=== PATIENT | female | born 1965 | race Caucasian/White ===

== ENCOUNTER 2018-04-09 11:19 | Day surgery (SDC) | payer OTHER ==
[2018-04-09 12:59] VITALS: TEMP 97.8
[2018-04-09 13:39] VITALS: BP 150/78; PULSE 56
--- NOTE | 2018-04-10 18:22 | PATH ---
Surgical Pathology Report Patient Name: JANETH PLASENCIA [facility]. Rec. #: [id number] /Age/Gender: 1965 (Age: 52) / F Account: [id number] Location: U-ENDOSCOPY Taken: 04/09/2018 Received: 04/09/2018 Reported: 04/10/2018 Physicians: Odell Bowers D.O. Specimen(s) Received A: BX DUODENUM B: BX ANTRUM C: BX BODY Clinical History Abdominal bloating, gallstones Postoperative diagnosis: Gastritis, duodenitis, small sliding hiatal hernia Final Diagnosis A. DUODENUM, BIOPSY: DUODENAL MUCOSA WITHOUT SIGNIFICANT PATHOLOGIC FINDINGS. B. STOMACH, ANTRUM, BIOPSY: GASTRIC ANTRAL MUCOSA WITH MILD CHRONIC GASTRITIS. IMMUNOHISTOCHEMICAL STAIN FOR H. PYLORI IS NEGATIVE. C. STOMACH, BODY, BIOPSY: GASTRIC BODY MUCOSA WITHOUT SIGNIFICANT PATHOLOGIC FINDINGS. IMMUNOHISTOCHEMICAL STAIN FOR H. PYLORI IS NEGATIVE. Electronically Signed Eliza Pham M.D. Gross Description A. Received in formalin, labeled "biopsy duodenum" are 3 marrufo, irregular portions of soft tissue ranging from 0.3-0.4 cm. in greatest dimension. The specimens are submitted in toto in one cassette. B. Received in formalin, labeled "biopsy antrum" are 3 marrufo, irregular portions of soft tissue ranging from 0.2-0.4 cm. in greatest dimension. The specimens are submitted in toto in one cassette. C. Received in formalin, labeled "biopsy body of stomach" is a marrufo, irregular portion of soft tissue measuring 0.4 cm. in greatest dimension. The specimen is submitted in toto in one cassette. /04/09/2018 saudi04/09/2018
== END 2018-04-09 13:39 | disposition home or self-care (01) ==
LOC: JASU-ENDO 11:19
PROVIDERS: ATTEND Internal Medicine Gastroenterology
PROC: 0DB68ZX Excision of Stomach, Via Natural or Artificial Opening Endoscopic, Diagnostic (ICD-10-PCS; 2018-04-09)
PROC: 0DB98ZX Excision of Duodenum, Via Natural or Artificial Opening Endoscopic, Diagnostic (ICD-10-PCS; principal; 2018-04-09 12:00)
DX: K29.60 Other gastritis without bleeding (principal); K44.9 Diaphragmatic hernia without obstruction or gangrene; K29.80 Duodenitis without bleeding
CPT/HCPCS: 88305-TC; 88342-TC

== ENCOUNTER 2019-04-07 00:02 | Inpatient (IN) | payer OTHER ==
[2019-04-07] MEDS ORDERED: morphine CARPU-JECT 2 MG/1 ML DISP.SYRIN IVPUSH ONE ×2 (00:19→03:26)
[2019-04-07] MEDS ORDERED: SODIUM CHLORIDE 1,000 ML IV ONE (00:19)
[2019-04-07] MEDS ORDERED: KETOROLAC TROMETHAMINE 30 MG/1 ML VIAL IVPUSH ONE (00:19)
--- NOTE | 2019-04-07 00:21 | PDOC ---
History of Present Illness - General Chief Complaint: Pain, Acute Stated Complaint: CHILLS,ACHING, PAIN TO MID ABDOMEN Time Seen by Provider: 04/07/19 00:10 History Source: Patient Exam Limitations: No Limitations - History of Present Illness Initial Comments: 04/07/19 00:22 This is a 53-year-old female who comes in complaining of epigastric and right upper quadrant abdominal pain. Patient has a history of gallstones. Patient is a pain began post eating buckner today. Patient also had been having some flulike symptoms prior to the onset of her pain today. Patient denies any nausea vomiting or diarrhea. Patient is complaining some chills but is afebrile here in the emergency department. Patient says she also had an episode of dizziness with some slurred speech and confusion 2 days ago that has since resolved. Patient does have a history also of pancreatitis and small bowel obstruction in the past many years ago and said that she has not had any problems with either over the last several decades. Allergies: as per nursing notes Past Medical History: As per HPI Social history: Lives with family. + smoking. No alcohol. No illicit drugs. Surgical history: None General: No fevers or chills, no weakness, no weight loss HEENT: No change in vision. No sore throat,. No ear pain CardioVascular: no chest discomfort. No shortness of breath Respiratory:No cough, or wheezing. Gastrointestinal: no nausea, vomiting, diarrhea or constipation, No rectal bleeding.+ Abdominal pain Genitourinary: No dysuria, hematuria, or frequency Musculoskeletal: No joint or muscle pain or swelling Neurologic: No headache, vertigo, dizziness or loss of consciousness Psychiatric: nor depression Skin: No rashes or easy bruising Endocrine: no increased thirst or abnormal weight change Allergic: no skin or latex allergy All other systems reviewed and normal Exam: General: Well-nourished well-developed individual, no acute distress HEENT: Throat: Normal, tonsils normal, no erythema or exudate Neck: Supple, no meningeal signs, no lymphadenopathy Eyes::Pupils equal reactive and round, extraocular motion intact Chest: Nontender to palpation Cardiac: S1-S2 normal, regular rate and rhythm, no murmurs rubs or gallops Respiratory: Lungs clear to auscultation bilateral Abdomen: Soft, nondistended, normal bowel sounds, there is tenderness on palpation in the right upper quadrant and epigastric area, there is no guarding or rebound. Extremities: Warm, dry, no cyanosis, clubbing, or edema Skin: No rashes Neuro: Alert and oriented x3, CN II - XII intact, nonfocal exam with normal strength, normal sensation, normal reflexes, normal gait, Psych: Normal mood and affect Assessment and plan: This is a 53-year-old female who comes in complaining of chills and abdominal pain. Patient has a history of gallstones in the past. Patient's pain began post eating buckner. Patient was tender in her right upper quadrant and work-up was initiated including CBC, comp, lipase, CAT scan abdomen and ultrasound of gallbladder. 04/07/19 03:27 Ultrasound is moderately suspicious for acute cholecystitis with thickening of the wall at 4 mm but no dilation of the common bile duct Patient also has a urinary tract infection Patient given ceftriaxone and Flagyl IV Patient will be admitted to an inpatient bed for removal of her gallstones Past History - Past Medical History Allergies/Adverse Reactions: Allergies Allergy/AdvReac Type Severity Reaction Status Date / Time Penicillins Allergy Verified 04/07/19 00:04 Home Medications: Ambulatory Orders Lorazepam [Ativan] 2 mg PO TID 05/02/14 Sertraline HCl 50 mg PO BID 04/08/18 Anemia: No Asthma: No Cancer: No Cardiac Disorders: No CVA: No COPD: No CHF: No Dementia: No Diabetes: No GI Disorders: Yes (IBS, GALLSTONES, ILEUS VS BOWEL OBSTRUCTION W/ PANCREATITIS) Disorders: No HTN: No Hypercholesterolemia: No Liver Disease: No Psychiatric Problems: Yes (ANXIETY) Seizures: No Thyroid Disease: No - Surgical History Abdominal Surgery: No Appendectomy: No Cardiac Surgery: No Cholecystectomy: No Lung Surgery: No Neurologic Surgery: No Orthopedic Surgery: Yes (RIGHT ELBOW SURGERY-40 YEARS AGO) - Psycho Social/Smoking Cessation Hx Smoking History: Current every day smoker Have you smoked in the past 12 months: Yes Number of Cigarettes Smoked Daily: 10 Information on smoking cessation initiated: Yes 'Breaking Loose' booklet given: 04/09/18 Hx Alcohol Use: No Drug/Substance Use Hx: No Substance Use Type: None Hx Substance Use Treatment: No *Physical Exam - Vital Signs Last Vital Signs Temp Pulse Resp BP Pulse Ox 97.9 F 52 L 20 122/75 98 04/07/19 00:06 04/07/19 00:06 04/07/19 00:06 04/07/19 00:06 04/07/19 00:06 ED Treatment Course - LABORATORY CBC & Chemistry Diagram: 04/07/19 00:30 04/07/19 00:30 Discharge - Discharge Information Problems reviewed: Yes Clinical Impression/Diagnosis: Acute cholecystitis Condition: Stable - Admission Yes - Follow up/Referral - Patient Discharge Instructions - Post Discharge Activity
[2019-04-07] MEDS ORDERED: morphine SULFATE 4 MG/ML VIAL ONE ×2 (00:44→03:27)
[2019-04-07] MEDS ORDERED: KETOROLAC TROMETHAMINE 30 MG/1 ML VIAL ONE (00:44)
[2019-04-07 01:16] LABS: BASO % 0.8 % (0-2.0); EOS % 2.6 % (0-4.5); HEMATOCRIT 40.9 % (32.4-45.2); HEMOGLOBIN 13.6 GM/dL (10.7-15.3); LYMPH % 37.9 % (8-40); MCH 31.3 pg (25.7-33.7); MCHC 33.4 g/dl (32.0-36.0); MEAN CELL VOLUME 93.8 fl (80-96); MEAN PLT VOLUME 9.5 fl (7.5-11.1); MONO % 8.5 % (3.8-10.2); NEUT % 50.2 % (42.8-82.8); PLATELET COUNT 196 K/MM3 (134-434); RBC 4.36 M/mm3 (3.60-5.2); RDW 13.6 % (11.6-15.6); WHITE BLOOD COUNT 6.6 K/mm3 (4.0-10.0)
[2019-04-07 01:20] LABS: EPI CELLS 0.8 /HPF (0-5/HPF); HYALINE CASTS 12 /lpf (0-8); PH,URINE 5.5 (5.0-8.0); URINE APPEARANCE CLEAR; URINE BILIRUBIN NEGATIVE (NEGATIVE); URINE COLOR YELLOW; URINE GLUCOSE (UA) NEGATIVE (NEGATIVE); URINE KETONE TRACE (NEGATIVE); URINE LEUK ESTERASE 2+ (NEGATIVE); URINE NITRITE NEGATIVE (NEGATIVE); URINE PROTEIN NEGATIVE (NEGATIVE); URINE RBC 1 /hpf (0-4); URINE UROBILINOGEN 0.2 mg/dL (0.2-1.0); URINE WBC 29 /hpf (0-5)
[2019-04-07 01:38] LABS: ALBUMIN 4.1 g/dl (3.4-5.0); ALK PHOS 91 U/L (45-117); ANION GAP 7 MMOL/L (8-16); BILIRUBIN,TOTAL 0.2 mg/dL (0.2-1); BLOOD UREA NITROGEN 21.1 mg/dL (7-18); CALCIUM 9.4 mg/dL (8.5-10.1); CHLORIDE 106 mmol/L (98-107); CO2 29 mmol/L (21-32); CREATININE 1.1 mg/dL (0.55-1.3); GLUCOSE,RANDOM 106 mg/dL (74-106); POTASSIUM 3.7 mmol/L (3.5-5.1); SGOT/AST 19 U/L (15-37); SGPT/ALT 25 U/L (13-61); SODIUM 142 mmol/L (136-145); TOT PROT 7.4 g/dl (6.4-8.2)
[2019-04-07] MEDS ORDERED: CEFTRIAXONE 2,000 MG in DEXTROSE 5%-WATER - 50 ML IVPB ONE (03:24)
[2019-04-07] MEDS ORDERED: morphine CARPU-JECT 2 MG/1 ML DISP.SYRIN IVPUSH PRN (05:24)
[2019-04-07] MEDS ORDERED: LORazepam 2 MG/ML SDV VIAL IM PRN ×2 (05:30→09:36)
[2019-04-07] MEDS ORDERED: SODIUM CHLORIDE 1,000 ML IV SCH (05:30)
[2019-04-07] MEDS ORDERED: HEPARIN NA (PORCINE) 5,000 UNITS/ML 1ML VIAL SQ SCH (06:00)
[2019-04-07 07:05] LABS: HEMATOCRIT 36.5 % (32.4-45.2); MCH 31.1 pg (25.7-33.7); MCHC 32.8 g/dl (32.0-36.0); MEAN CELL VOLUME 94.9 fl (80-96); MEAN PLT VOLUME 8.8 fl (7.5-11.1); PLATELET COUNT 171 K/MM3 (134-434); RBC 3.84 M/mm3 (3.60-5.2); RDW 13.1 % (11.6-15.6); WHITE BLOOD COUNT 5.1 K/mm3 (4.0-10.8)
[2019-04-07 07:19] LABS: CALCIUM 8.6 mg/dl (8.5-10); CREATININE 0.7 mg/dl (0.55-1.3); POTASSIUM 3.8 mmol/L (3.5-5.1)
--- NOTE | 2019-04-07 09:18 | HP ---
"CHIEF COMPLAINT: Abdominal pain PCP: Dr. Henley HISTORY OF PRESENT ILLNESS: 53 year-old female with a PMH significant for arthritis, panic/anxiety disorder , IBS, pancreatitis in setting of heroin withdrawal, possible chronic cholecystitis, and polysubstance abuse. Presented to the ED for evaluation of epigastric and right upper quadrant abdominal pain. Patient reports intermittent abdominal pain for 1/2 years, had a workup in 2018 and was told she had gallstones. Yesterday patient developed severe abdominal pain and nausea after eating buckner. She has been having some malaise and flulike symptoms for the past week. ER course was notable for: (1) Lipase 415 Recent Travel: No PAST MEDICAL HISTORY: Arthritis Panic/Anxiety disorder IBS Former heroin abuse Pancreatitis PAST SURGICAL HISTORY: Right elbow surgery Social History: single, works as [employer] worker Smoking: current every day smoker Alcohol: no Drugs: former intransasal heroin abuse, cocaine abuse Family history: father 48 [place]; mother with depression Allergies Penicillins Allergy (Verified 04/07/19 00:04) HOME MEDICATIONS: Home Medications Medication Instructions Recorded Lorazepam [Ativan] 2 mg PO TID 05/02/14 Sertraline HCl 50 mg PO BID 04/08/18 REVIEW OF SYSTEMS CONSTITUTIONAL: Absent: fever, chills, diaphoresis, generalized weakness, malaise, loss of appetite, weight change HEENT: Absent: rhinorrhea, nasal congestion, throat pain, throat swelling, difficulty swallowing, mouth swelling, ear pain, eye pain, visual changes CARDIOVASCULAR: Absent: chest pain, syncope, palpitations, irregular heart rate, lightheadedness , peripheral edema RESPIRATORY: Absent: cough, shortness of breath, dyspnea with exertion, orthopnea, wheezing, stridor, hemoptysis GASTROINTESTINAL: +abdominal pain, nausea Absent: vomiting, diarrhea, constipation, melena, hematochezia GENITOURINARY: Absent: dysuria, frequency, urgency, hesitancy, hematuria, flank pain, genital pain MUSCULOSKELETAL: Absent: myalgia, arthralgia, joint swelling, back pain, neck pain SKIN: Absent: rash, itching, pallor HEMATOLOGIC/IMMUNOLOGIC: Absent: easy bleeding, easy bruising, lymphadenopathy, frequent infections ENDOCRINE: Absent: unexplained weight gain, unexplained weight loss, heat intolerance, cold intolerance NEUROLOGIC: Absent: headache, focal weakness or paresthesias, dizziness, unsteady gait, seizure, mental status changes, bladder or bowel incontinence PSYCHIATRIC: Absent: anxiety, depression, suicidal or homicidal ideation, hallucinations. PHYSICAL EXAMINATION Vital Signs - 24 hr 04/07/19 04/07/19 04/07/19 00:06 03:51 03:58 Temperature 97.9 F 97.7 F 97.8 F Pulse Rate 52 L 46 L Pulse Rate [ 51 L Left] Respiratory 20 18 18 Rate Blood Pressure 122/75 129/68 Blood Pressure 131/77 [Left] O2 Sat by Pulse 98 99 99 Oximetry (%) 04/07/19 04/07/19 04/07/19 04:16 05:24 06:00 Temperature 97.8 F 97.7 F Pulse Rate 46 L 51 L Pulse Rate [ Left] Respiratory 18 18 Rate Blood Pressure 129/68 100/57 L Blood Pressure [Left] O2 Sat by Pulse 95 Oximetry (%) 04/07/19 04/07/19 06:57 08:32 Temperature Pulse Rate 53 L Pulse Rate [ Left] Respiratory 18 Rate Blood Pressure 110/63 Blood Pressure [Left] O2 Sat by Pulse 95 Oximetry (%) GENERAL: Awake, alert, and fully oriented, in no acute distress. HEAD: Normal with no signs of trauma. EYES: Pupils equal, round and reactive to light, extraocular movements intact, sclera anicteric, conjunctiva clear. No lid lag. EARS, NOSE, THROAT: Ears normal, nares patent, oropharynx clear without exudates. Moist mucous membranes. NECK: Normal range of motion, supple without lymphadenopathy, JVD, or masses. LUNGS: Breath sounds equal, clear to auscultation bilaterally. No wheezes, and no crackles. No accessory muscle use. HEART: Regular rate and rhythm, normal S1 and S2 without murmur, rub or gallop. ABDOMEN: Soft, mild tenderness RUQ and epigastrum, UPPER EXTREMITIES: 2+ pulses, warm, well-perfused. No cyanosis. No clubbing. No peripheral edema. LOWER EXTREMITIES: 2+ pulses, warm, well-perfused. No calf tenderness. No peripheral edema. NEUROLOGICAL: Cranial nerves II-XII intact. Normal speech. Laboratory Results - last 24 hr 04/07/19 04/07/19 04/07/19 00:30 00:30 00:30 WBC 6.6 RBC 4.36 Hgb 13.6 Hct 40.9 MCV 93.8 MCH 31.3 MCHC 33.4 RDW 13.6 Plt Count 196 MPV 9.5 Absolute Neuts (auto) 3.3 Neutrophils % 50.2 Lymphocytes % 37.9 Monocytes % 8.5 Eosinophils % 2.6 Basophils % 0.8 Nucleated RBC % 0 Sodium 142 Potassium 3.7 Chloride 106 Carbon Dioxide 29 Anion Gap 7 L BUN 21.1 H Creatinine 1.1 Est GFR (CKD-EPI)AfAm 67.32 Est GFR (CKD-EPI)NonAf 58.08 Random Glucose 106 Calcium 9.4 Total Bilirubin 0.2 AST 19 ALT 25 Alkaline Phosphatase 91 Creatine Kinase 109 Troponin I < 0.02 Total Protein 7.4 Albumin 4.1 Lipase 415 H Urine Color Urine Appearance Urine pH Ur Specific [place] Urine Protein Urine Glucose (UA) Urine Ketones Urine Blood Urine Nitrite Urine Bilirubin Urine Urobilinogen Ur Leukocyte Esterase Urine WBC (Auto) Urine RBC (Auto) Urine Casts (Auto) U Epithel Cells (Auto) Urine Bacteria (Auto) 04/07/19 04/07/19 04/07/19 00:30 06:59 06:59 WBC 5.1 RBC 3.84 Hgb 12.0 Hct 36.5 D MCV 94.9 MCH 31.1 MCHC 32.8 RDW 13.1 Plt Count 171 MPV 8.8 Absolute Neuts (auto) Neutrophils % Lymphocytes % Monocytes % Eosinophils % Basophils % Nucleated RBC % Sodium 140 Potassium 3.8 Chloride 109 H Carbon Dioxide 24 Anion Gap 7 L BUN 20.0 H Creatinine 0.7 Est GFR (CKD-EPI)AfAm 116.27 Est GFR (CKD-EPI)NonAf 100.32 Random Glucose 92 Calcium 8.6 Total Bilirubin AST ALT Alkaline Phosphatase Creatine Kinase Troponin I Total Protein Albumin Lipase Urine Color Yellow Urine Appearance Clear Urine pH 5.5 Ur Specific [place] 1.028 Urine Protein Negative Urine Glucose (UA) Negative Urine Ketones Trace H Urine Blood Negative Urine Nitrite Negative Urine Bilirubin Negative Urine Urobilinogen 0.2 Ur Leukocyte Esterase 2+ H Urine WBC (Auto) 29 Urine RBC (Auto) 1 Urine Casts (Auto) 12 U Epithel Cells (Auto) 0.8 Urine Bacteria (Auto) 37.0 2017 GI workup --02/02/18 US: gallstones, thickened gallbladder, no biliary dilitation, no pancreatitis --03/18/18 CTAP: slightly contracted, thickened gallbadder ASSESSMENT/PLAN: 53 year-old female with a PMH significant for arthritis, panic/anxiety disorder , IBS, pancreatitis in setting of heroin withdrawal, possible chronic cholecystitis, and polysubstance abuse. Admitted for cholecystitis. Cholelithiasis r/o acute cholecystitis --workup in 2018 was suggestive of chronic cholecystitis --04/07 CTAP: contracted gallbladder with calculi --04/07 US: partially contracted gallbladder, thick-walled, with calculi --no fever, no leukocytosis, no liver function abnormalities; observe off antibiotics --lipase mildly elevated; IV fluids --seen and evaluated by Dr. Beasley who ordered MRCP; if no choledocholelithiasis, tentative lap adam tomorrow Arthritis --stable Panic/anxiety disorder --at home takes lorazepam 2mg TID--see ISTOP below --while inpatient, 0.5mg IM q8h PRN h/o polysubstance abuse --apparently remote history of intranasal heroin and cocaine use --monitor for s/s withdrawal IBS --stable, not on meds FEN Fluids: NS@125mL/hr Electrolytes: replete as indicated Nutrition: NPO DVT prophylaxis: SCDs, oob, ambulation Dispo: continues to require inpatient care. Full code. I STOP The Drug Utilization Report below displays all of the controlled substance prescriptions, if any, that your patient has filled in the last twelve months. The information displayed on this report is compiled from pharmacy submissions to the Department, and accurately reflects the information as submitted by the pharmacies. This report was requested by: Grace Dan | Reference #: [id number] Others' Prescriptions Patient Name: Grace Celeste Date: 1965 Address: [address] [place] [id number] Sex: Female Rx Written Rx Dispensed Drug Quantity Days Supply Prescriber Name 03/31/2019 03/31/2019 lorazepam 2 mg tablet 90 30 Bayron Henley MD 03/26/2019 03/26/2019 hydrocodone-acetaminophen 5-300 mg tablet 2 2 Bayron Henley MD 03/10/2019 03/10/2019 clonazepam 1 mg tablet 30 30 Bayron Henley MD 02/24/2019 02/24/2019 lorazepam 2 mg tablet 90 30 Bayron Henley MD 02/19/2019 02/19/2019 clonazepam 1 mg tablet 6 2 Bayron Henley MD 02/10/2019 02/11/2019 clonazepam 1 mg tablet 6 2 Bayron Henley MD 02/10/2019 02/10/2019 hydrocodone-acetaminophen 5-300 mg tablet 12 12 Bayron Henley MD 01/30/2019 01/30/2019 clonazepam 1 mg tablet 6 2 Duncan Chambers MD 01/20/2019 01/25/2019 lorazepam 2 mg tablet 90 30 Duncan Chambers MD 12/23/2018 12/26/2018 lorazepam 2 mg tablet 90 30 Bayron Henley MD 12/11/2018 12/11/2018 hydrocodone-acetaminophen 5-300 mg tablet 12 12 Bayron Henley MD 11/25/2018 11/26/2018 lorazepam 2 mg tablet 90 30 Bayron Henley MD 10/28/2018 10/30/2018 lorazepam 2 mg tablet 90 30 Bayron Henley MD 10/30/2018 10/30/2018 virtussin ac liquid 120ml 8 Bayron Henley MD 10/23/2018 10/23/2018 promethazine-codeine syrup 105ml 7 Bayron Henley MD 10/23/2018 10/23/2018 lorazepam 2 mg tablet 15 5 Bayron Henley MD 09/30/2018 10/01/2018 lorazepam 2 mg tablet 90 30 Bayron Henley MD 09/26/2018 09/27/2018 hydrocodone-acetaminophen 5-300 mg tablet 12 12 Bayron Henley MD 09/11/2018 09/11/2018 hydrocodone-acetaminophen 5-300 mg tablet 12 12 Bayron Henley MD 09/02/2018 09/02/2018 lorazepam 2 mg tablet 90 30 Bayron Henley MD 08/07/2018 08/07/2018 lorazepam 2 mg tablet 90 30 Bayron Henley MD 07/10/2018 07/11/2018 lorazepam 2 mg tablet 90 30 Bayron Henley MD 06/12/2018 06/12/2018 lorazepam 2 mg tablet 90 30 Bayron Henley MD 05/27/2018 05/27/2018 virtussin ac liquid 120ml 2 Bayron Henley MD 05/13/2018 05/15/2018 lorazepam 2 mg tablet 90 30 Bayron Henley MD 04/17/2018 04/17/2018 lorazepam 2 mg tablet 90 30 Bayron Henley MD Visit type - Emergency Visit Emergency Visit: Yes ED Registration Date: 04/07/19 Care time: The patient presented to the Emergency Department on the above date and was hospitalized for further evaluation of their emergent condition. - New Patient This patient is new to me today: Yes Date on this admission: 04/07/19 - Critical Care Critical Care patient: No"
--- NOTE | 2019-04-07 09:54 | CONSULT ---
Consult Consult Specialty:: General Surgery Reason for Consultation:: gallstone pancreratitis - History of Present Illness Chief Complaint: abdominal pain History of Present Illness: 53yo female PMH Depression, Anxiety, Irritable bowel syndrome presented to ED with persistent epigastric abdominal pain. Patient has a history of gallstones diagnosed [address] Lazo. She has seen Dr. Mcnair in the past. Patient is a pain began post eating buckner today. Patient also had been having some flu-like symptoms prior to the onset of her pain today. Patient denies any nausea vomiting or diarrhea. Patient is complaining some chills but is afebrile here in the emergency department. Patient says she also had an episode of dizziness with some slurred speech and confusion 2 days ago that has since resolved. Patient does have a history also of pancreatitis and small bowel obstruction in the past many years ago and said that she has not had any problems with either over the last several decades. We were called to assess. - History Source History Provided By: Patient, Medical Record Limitations to Obtaining History: No Limitations - Past Medical History Hepatobiliary: Yes: Cholecystitis, Choledocholithiasis - Alcohol/Substance Use Hx Alcohol Use: No - Smoking History Smoking history: Current every day smoker Have you smoked in the past 12 months: Yes Aproximately how many cigarettes per day: 10 - Social History Place of : [facility] History of Recent Travel: No Home Medications - Allergies Allergies/Adverse Reactions: Allergies Allergy/AdvReac Type Severity Reaction Status Date / Time Penicillins Allergy Verified 04/07/19 00:04 - Home Medications Home Medications: Ambulatory Orders Lorazepam [Ativan] 2 mg PO TID 05/02/14 Sertraline HCl 50 mg PO BID 04/08/18 Review of Systems - Review of Systems Constitutional: denies: Chills, Fever Eyes: denies: Blind Spots, Recent Change in Vision HENT: denies: Difficult Swallowing, Throat Pain, Toothache Neck: denies: Decreased ROM, Pain on Movement Cardiovascular: denies: Chest Pain, Palpitations Respiratory: denies: SOB, Wheezing Gastrointestinal: reports: Abdominal Pain. denies: Constipation, Diarrhea Genitourinary: denies: Discharge, Dysuria, Flank Pain Breasts: reports: No Symptoms Reported. denies: Pain Musculoskeletal: denies: Joint Swelling, Muscle Cramps Integumentary: denies: Lump, Rash Neurological: denies: Seizure, Syncope Endocrine: denies: Unexplained Weight Gain, Unexplained Weight Loss Hematology/Lymphatic: denies: Easily Bruised, Excessive Bleeding Psychiatric: denies: Anxiety, Depression Physical Exam Vital Signs: Vital Signs Temperature 98.5 F 04/07/19 09:42 Pulse Rate 62 04/07/19 09:42 Respiratory Rate 18 04/07/19 09:42 Blood Pressure 129/79 04/07/19 09:42 O2 Sat by Pulse Oximetry (%) 97 04/07/19 09:42 Constitutional: Yes: Well Nourished, No Distress, Calm, Thin Eyes: Yes: Conjunctiva Clear, EOM Intact HENT: Yes: Atraumatic, Normocephalic Neck: Yes: Supple, Trachea Midline Cardiovascular: Yes: Regular Rate and Rhythm, S1, S2 Respiratory: Yes: Regular, CTA Bilaterally Gastrointestinal: Yes: Normal Bowel Sounds, Soft, Tenderness, Tenderness, Epigastrium. No: Abdomen, Obese, Distention, Hepatomegaly, Hernia, Tenderness, Rebound ...Rectal Exam: Yes: Deferred Renal/: No: CVA Tenderness - Left, CVA Tenderness - Right Breast(s): No: Dimpling, Mass Musculoskeletal: No: Muscle Pain Extremities: No: Amputation, Cool, Cyanosis Edema: Yes Peripheral Pulses WNL: No Integumentary: No: Jaundice, Rash, Skin Tear Neurological: Yes: Alert, Oriented Psychiatric: Yes: Alert, Oriented Labs: CBC, BMP 04/07/19 06:59 04/07/19 06:59 Imaging - Results Cat Scan: Report Reviewed, Image Reviewed (contracted GB with gallstone) Ultrasound: Report Reviewed, Image Reviewed MRI: Pending Problem List - Problems (1) Gall stone pancreatitis Assessment/Plan: 53yo female chronic cholecystitis and gall stone pancreatitis (lipase 415) NPO and IVF hydration empiric IV antibioics ID consult Repeat labs MRCP to evaluate hepatic outlet Discussed with patient risks, benefits and alternatives of laparoscopic possible open cholecystectomy, including but not limited to bleeding, infection , injury to adjacent structures, leak or injury, intraabdominal abscess, incisional hernia, need for further procedures, ; alternatives include antibiotics, delayed or no surgery - risks of this include failure of nonoperative therapy, perforation, sepsis, recurrence, . Patient desires to proceed with operation - will take to OR for above. Informed consent signed for same. Thank you for the opportunity to participate in the care of this patient. Problems reviewed: Yes Code(s): K85.10 - BILIARY ACUTE PANCREATITIS WITHOUT NECROSIS OR INFECTION (2) Biliary colic Problems reviewed: Yes Code(s): K80.50 - CALCULUS OF BILE DUCT W/O CHOLANGITIS OR CHOLECYST W/O OBST (3) Choledocholithiasis with acute cholecystitis Problems reviewed: Yes Code(s): K80.42 - CALCULUS OF BILE DUCT W ACUTE CHOLECYSTITIS W/O OBSTRUCTION (4) Abdominal pain in female Problems reviewed: Yes Code(s): R10.9 - UNSPECIFIED ABDOMINAL PAIN (5) Acute cholecystitis Problems reviewed: Yes Code(s): K81.0 - ACUTE CHOLECYSTITIS (6) Anxiety and depression Problems reviewed: Yes Code(s): F41.9 - ANXIETY DISORDER, UNSPECIFIED; F32.9 - MAJOR DEPRESSIVE DISORDER, SINGLE EPISODE, UNSPECIFIED (7) Irritable bowel syndrome (IBS) Problems reviewed: Yes Code(s): K58.9 - IRRITABLE BOWEL SYNDROME WITHOUT DIARRHEA
[2019-04-07] MEDS: SERTRALINE HCL 50 MG TABLET (FP) PO SCH (10:01)
[2019-04-07] MEDS: SODIUM CHLORIDE 1,000 ML IV SCH ×2 (10:01→23:22)
[2019-04-07] MEDS ORDERED: ACETAMINOPHEN 1000 MG/100 ML VIAL (NON FORMULARY) IVPB PRN (13:57)
[2019-04-07 14:42] VITALS: BMI 18.6
--- NOTE | 2019-04-07 15:58 | EKG ---
Test Reason : Blood Pressure : / mmHG Vent. Rate : 044 BPM Atrial Rate : 044 BPM P-R Int : 108 ms QRS Dur : 094 ms QT Int : 488 ms P-R-T Axes : -24 067 067 degrees QTc Int : 417 ms MARKED SINUS BRADYCARDIA WITH SHORT TN POSSIBLE ANTERIOR INFARCT , AGE UNDETERMINED ABNORMAL ECG NO PREVIOUS ECGS AVAILABLE Confirmed by MICHAEL WHITTINGTON, MARISOL ([id number]) on 04/07/2019 3:58:27 PM Referred By: MD RAMIREZ Confirmed By:MARISOL RODRIGUEZ MD
[2019-04-07] MEDS ORDERED: LORazepam 2 MG/ML SDV VIAL IVPUSH ONE (16:15)
--- NOTE | 2019-04-07 16:25 | CON.GI ---
Consult Consult Specialty:: GI Referred by:: Medicine Reason for Consultation:: rule out biliary obstruction - History of Present Illness Chief Complaint: abdominal pain History of Present Illness: 53F with h/o anxiety/depression presenting for evaluation of abdominal pain that began late last week but acutely worsened after buckner this morning. +nausea , no emesis. She reports intermittent abdominal pain for the last 1.5 years and was told by PMD she would need gallbladder removed. h/o EGD by Dr. Bowers in the past. +flu-like symptoms since late last week. She does report some tea colored urine, but no jaundice. In ED at [facility], normal LFTs, lipase 415. US with thick walled gallbladder and cholelithiasis. Abx started. No comment on US regarding CBD. Transferred here for MRCP. Patient is currently still in pain. + FHx gallstones in aunt. - History Source History Provided By: Patient - Past Medical History Hepatobiliary: Yes: Cholecystitis ...: No - Alcohol/Substance Use Hx Alcohol Use: No - Smoking History Smoking history: Current every day smoker Have you smoked in the past 12 months: Yes Aproximately how many cigarettes per day: 10 - Social History History of Recent Travel: No Home Medications - Allergies Allergies/Adverse Reactions: Allergies Allergy/AdvReac Type Severity Reaction Status Date / Time Penicillins Allergy Verified 04/07/19 00:04 - Home Medications Home Medications: Ambulatory Orders Lorazepam [Ativan] 2 mg PO TID 05/02/14 Sertraline HCl 50 mg PO BID 04/08/18 Review of Systems - Review of Systems Constitutional: reports: Chills, Malaise Eyes: reports: No Symptoms HENT: reports: No Symptoms Neck: reports: No Symptoms Cardiovascular: reports: No Symptoms Respiratory: reports: No Symptoms Gastrointestinal: reports: Abdominal Pain, Nausea. denies: Vomiting Breasts: reports: No Symptoms Reported Musculoskeletal: reports: Joint Pain Integumentary: reports: No Symptoms Neurological: reports: No Symptoms Endocrine: reports: No Symptoms Hematology/Lymphatic: reports: No Symptoms Physical Exam-GI Vital Signs: Vital Signs Temperature 98 F 04/07/19 14:41 Pulse Rate 55 L 04/07/19 14:41 Respiratory Rate 18 04/07/19 14:41 Blood Pressure 137/85 04/07/19 14:41 O2 Sat by Pulse Oximetry (%) 96 04/07/19 14:41 Constitutional: Yes: Well Nourished, No Distress Eyes: Yes: Conjunctiva Clear Cardiovascular: Yes: Regular Rate and Rhythm Respiratory: Yes: CTA Bilaterally ...Palpate: Yes: Soft, Tenderness (epigastrium) Musculoskeletal: Yes: WNL Edema: No Neurological: Yes: WNL, Alert, Oriented Psychiatric: Yes: WNL, Alert, Oriented Labs: CBC, BMP 04/07/19 06:59 04/07/19 06:59 Hepatic Panel Total Bilirubin 0.2 mg/dL (0.2-1) 04/07/19 00:30 AST 19 U/L (15-37) 04/07/19 00:30 ALT 25 U/L (13-61) 04/07/19 00:30 Alkaline Phosphatase 91 U/L (45-117) 04/07/19 00:30 Albumin 4.1 g/dl (3.4-5.0) 04/07/19 00:30 Lipase 400s Imaging - Results Ultrasound: Report Reviewed (no comment on CBD) Assessment/Plan Cholecystitis/possible gallstone pancreatitis Would ask radiology to comment on CBD size on US; if dilated, would proceed to MRCP Daily LFTs Patient understands if MRCP positive will need ERCP before ultimate cholecystectomy Abx as per surgery/ID
[2019-04-07] MEDS ORDERED: LORazepam 2 MG/ML SDV VIAL IVPB PRN (17:42)
[2019-04-07] MEDS ORDERED: MORPHINE SULFATE 2 MG/ML VIAL IVPUSH PRN (17:42)
[2019-04-08] MEDS: SERTRALINE HCL 50 MG TABLET (FP) PO SCH ×2 (00:18→10:31)
[2019-04-08 08:52] LABS: BASO % 1.2 % (0-2.0); EOS % 1.5 % (0-4.5); HEMATOCRIT 39.3 % (32.4-45.2); HEMOGLOBIN 12.9 GM/dL (10.7-15.3); LYMPH % 20.5 % (8-40); MCH 30.7 pg (25.7-33.7); MCHC 32.8 g/dl (32.0-36.0); MEAN CELL VOLUME 93.7 fl (80-96); MEAN PLT VOLUME 9.1 fl (7.5-11.1); MONO % 5.6 % (3.8-10.2); NEUT % 71.2 % (42.8-82.8); PLATELET COUNT 184 K/MM3 (134-434); RBC 4.19 M/mm3 (3.60-5.2); RDW 13.6 % (11.6-15.6); WHITE BLOOD COUNT 4.9 K/mm3 (4.0-10.0)
--- NOTE | 2019-04-08 09:00 | PN ---
Progress Note, Physician Chief Complaint: awaiting surgery for cholecyctectomy History of Present Illness: 53 year-old female with a PMH significant for arthritis, panic/anxiety disorder , IBS, pancreatitis in setting of heroin withdrawal, possible chronic cholecystitis, and polysubstance abuse. Presented to the ED for evaluation of epigastric and right upper quadrant abdominal pain. Patient reports intermittent abdominal pain for 1/2 years, had a workup in 2018 and was told she had gallstones. Yesterday patient developed severe abdominal pain and nausea after eating buckner. She has been having some malaise and flulike symptoms for the past week. - Current Medication List Current Medications: Active Medications Acetaminophen (Ofirmev Injection -) 1,000 mg IVPB Q6H PRN PRN Reason: PAIN LEVEL 1-5 Last Admin: 04/07/19 15:07 Dose: 1,000 mg Lorazepam (Ativan Injection -) 0.5 mg IVPB Q8H PRN PRN Reason: ANXIETY Last Admin: 04/08/19 06:24 Dose: 0.5 mg Morphine Sulfate (Morphine Sulfate) 0.5 mg IVPUSH Q12H PRN PRN Reason: PAIN LEVEL 7 - 10 Last Admin: 04/08/19 00:18 Dose: 0.5 mg Sertraline HCl (Zoloft -) 50 mg PO BID JO-ANN Last Admin: 04/08/19 00:18 Dose: 50 mg - Objective Vital Signs: Vital Signs Temperature 97.8 F 04/08/19 05:00 Pulse Rate 56 L 04/08/19 05:00 Respiratory Rate 18 04/08/19 05:00 Blood Pressure 106/68 04/08/19 05:00 O2 Sat by Pulse Oximetry (%) 96 04/07/19 14:41 Constitutional: Yes: Well Nourished, No Distress, Calm Eyes: Yes: WNL, Conjunctiva Clear, EOM Intact HENT: Yes: WNL, Atraumatic, Normocephalic Neck: Yes: WNL, Supple, Trachea Midline Cardiovascular: Yes: WNL, Regular Rate and Rhythm Respiratory: Yes: WNL, Regular, CTA Bilaterally Gastrointestinal: Yes: WNL, Normal Bowel Sounds, Soft (TTP RUQ) ...Rectal Exam: Yes: Deferred Genitourinary: Yes: WNL Breast(s): Yes: WNL Musculoskeletal: Yes: WNL Extremities: Yes: WNL Edema: No Peripheral Pulses WNL: Yes Peripheral Pulses: Left Radial: 2+, Right Radial: 2+, Left Doralis Pedis: 2+, Right Dorsalis Pedis: 2+, Left Femoral: 2+, Right Femoral: 2+ Integumentary: Yes: WNL Neurological: Yes: WNL, Alert, Oriented ...Motor Strength: WNL - ....Imaging Cat Scan: Report Reviewed (--04/07 CTAP: contracted gallbladder with calculi) Ultrasound: Report Reviewed (--04/07 US: partially contracted gallbladder, thick -walled, with calculi) Problem List - Problems (1) Pancreatitis Assessment/Plan: Lipase trending down NPO for OR IVF Code(s): K85.90 - ACUTE PANCREATITIS WITHOUT NECROSIS OR INFECTION, UNSP (2) Polysubstance abuse Assessment/Plan: remote history of intranasal heroin and cocaine use monitor for s/s withdrawal Code(s): F19.10 - OTHER PSYCHOACTIVE SUBSTANCE ABUSE, UNCOMPLICATED (3) Preventive measure Assessment/Plan: FEN Fluids: NS @ 150mL/hr Electrolytes: replete as indicated Nutrition: NPO DVT prophylaxis: SCDs, oob, ambulation Dispo: continues to require inpatient care. Full code discharge planning Code(s): Z29.9 - ENCOUNTER FOR PROPHYLACTIC MEASURES, UNSPECIFIED (4) Anxiety and depression Assessment/Plan: c/w sertraline when no longer NPO Code(s): F41.9 - ANXIETY DISORDER, UNSPECIFIED; F32.9 - MAJOR DEPRESSIVE DISORDER, SINGLE EPISODE, UNSPECIFIED (5) Irritable bowel syndrome (IBS) Code(s): K58.9 - IRRITABLE BOWEL SYNDROME WITHOUT DIARRHEA (6) Choledocholithiasis with acute cholecystitis Assessment/Plan: evaluated by Dr. Ramos medina today Code(s): K80.42 - CALCULUS OF BILE DUCT W ACUTE CHOLECYSTITIS W/O OBSTRUCTION Visit type - Emergency Visit Emergency Visit: Yes ED Registration Date: 04/07/19 Care time: The patient presented to the Emergency Department on the above date and was hospitalized for further evaluation of their emergent condition. - New Patient This patient is new to me today: Yes Date on this admission: 04/08/19 - Critical Care Critical Care patient: No - Discharge Referral Referred to [facility] Med P.C.: No
[2019-04-08 09:03] LABS: INR 1.13 (0.83-1.09); PROTHROMBIN TIME (PATIENT) 13.3 SEC (9.7-13.0)
[2019-04-08 09:28] LABS: ALBUMIN 3.4 g/dl (3.4-5.0); BILIRUBIN,TOTAL 0.3 mg/dL (0.2-1); BLOOD UREA NITROGEN 10.9 mg/dL (7-18); CALCIUM 8.8 mg/dL (8.5-10.1); CREATININE 0.6 mg/dL (0.55-1.3); POTASSIUM 4.4 mmol/L (3.5-5.1); TOT PROT 6.1 g/dl (6.4-8.2)
[2019-04-08] MEDS ORDERED: CEFTRIAXONE 1 G/50 ML PREMIX 50 ML IVPB SCH (10:00)
--- NOTE | 2019-04-08 10:19 | OP ---
Operative Note - Note: Operative Date: 04/08/19 Pre-Operative Diagnosis: biliary pancreatitis Operation: laparoscopic cholecystectomy Findings: distended gallbladder, with large stone critical view of safety was identified Post-Operative Diagnosis: Same as Pre-op Surgeon: Dustin Doty Batch Trucker: Rojelio Kline Anesthesia: General, Local Specimens Removed: gallbladder Estimated Blood Loss (mls): 10 Fluid Volume Replaced (mls): 700 Operative Report Dictated: Yes
[2019-04-08] MEDS ORDERED: BUPIVACAINE HCL/PF 0.5% (5 MG/ML) 30 ML VIAL IJ ONE ×3 (11:37→11:42)
[2019-04-08] MEDS ORDERED: MIDAZOLAM HCL 2 MG/2 ML SINGLE DOSE VIAL ONE (12:01)
[2019-04-08] MEDS ORDERED: PROMETHAZINE HCL 25 MG/1 ML VIAL IVPUSH PRN (12:18)
[2019-04-08] MEDS ORDERED: ONDANSETRON 4 MG/2 ML VIAL IVPUSH PRN (12:18)
[2019-04-08] MEDS ORDERED: PROPOFOL 20 ML ONE (12:27)
[2019-04-08] MEDS ORDERED: LIDOCAINE HCL 2% 100 MG/5 ML DISP.SYRIN ONE (12:28)
[2019-04-08] MEDS ORDERED: CLINDAMYCIN 600 MG PREMIX BAG IVPB ONE (12:28)
[2019-04-08] MEDS ORDERED: LACTATED RINGERS SOLUTION 1,000 ML IV SCH (12:30)
[2019-04-08] MEDS ORDERED: CLINDAMYCIN PHOSPHATE 600 MG/4 ML VIAL ONE (12:31)
[2019-04-08] MEDS ORDERED: ATROPINE SO4 0.4 MG/1 ML VIAL ONE (12:31)
[2019-04-08] MEDS ORDERED: DEXAMETHASONE SOD PHOSPHATE 4 MG/1 ML VIAL ONE (12:42)
[2019-04-08] MEDS ORDERED: NEOSTIGMINE METHYLSULFATE 0.5 MG/ML - 10 ML MDV ONE (13:07)
[2019-04-08] MEDS ORDERED: KETOROLAC TROMETHAMINE 30 MG/1 ML VIAL ONE (13:16)
[2019-04-08] MEDS ORDERED: GLYCOPYRROLATE 0.2 MG/1 ML VIAL ONE (13:18)
[2019-04-08] MEDS ORDERED: MORPHINE SULFATE 2 MG/ML VIAL IVPUSH PRN (13:57)
[2019-04-08] MEDS ORDERED: LORazepam 2 MG/ML SDV VIAL IVPB PRN (13:57)
[2019-04-08] MEDS ORDERED: ACETAMINOPHEN 1000 MG/100 ML VIAL (NON FORMULARY) IVPB PRN (13:57)
--- NOTE | 2019-04-08 15:32 | OP ---
DATE OF OPERATION: 04/08/2019 PREOPERATIVE DIAGNOSIS: Biliary pancreatitis. POSTOPERATIVE DIAGNOSIS: Biliary pancreatitis. PROCEDURE: Laparoscopic cholecystectomy. ATTENDING SURGEON: Dustin Doty MD ARCHITECTURE FACULTY MEMBER: Rojelio Kline MD ANESTHESIA: General and local, local consisted of 0.5% Marcaine, a total of 20 mL given at the port sites. ESTIMATED BLOOD LOSS: 10 mL. IV FLUID ADMINISTERED: 700 mL. SPECIMEN: Gallbladder with stone. BRIEF FINDINGS: Patient had a distended gallbladder with large stone. Critical view of safety was identified. INDICATION: The patient is a 53-year-old female, history of anxiety and depression, presented with epigastric abdominal pain. She had been diagnosed 1 year prior with gallstones. She had an episode of pancreatitis, brief, starting on of last week. She passed a stone likely, was recovering when she presented to the emergency room. She was counseled regarding risks, benefits, alternatives to surgical cholecystectomy, signed informed consent, and was taken for the procedure. PROCEDURE: The patient was brought to the operating room. She was placed in supine position on the operating table. Lower extremities had SCDs placed to compression. The patient was induced with general anesthesia, endotracheally intubated without incident by Anesthesia. She received Flagyl and clindamycin prior to the start of surgery. We began first with a formal prep and drape of the anterior abdominal wall. The site was marked at the supraumbilical position and subcostal on the right. We began with a formal timeout, identifying the operative procedure and site, with all parties in agreement. We began first with a supraumbilical approach for Karen entry into the abdomen. It was incised with a 15 blade scalpel, deepened and widened through subcutaneous tissue with Bovie cautery into the midline fascia of the rectus muscles. That was then elevated into the surgical field, at which point pneumoperitoneum was established to 15 mmHg. This was after laying in a [id number] 0 Vicryl for ablation postoperatively. We began first with identifying the gallbladder at the liver's edge and retracting it cranially. Additional operative entries were obtained using atraumatic trocars and a small darelne at the skin. They were 5 mm, and they were placed at the subxiphoid position and 2 in the right lateral abdomen. The gallbladder was then retracted cranially and towards the left shoulder, exposing the cystic structures. Planes were developed both anteriorly and posterior to the cystic duct and it was isolated. The node of Calot was identified and then guided us to dissection of the cystic artery as well. These structures were then clipped with 5-mm aluminum clip fuel house attendant and then transected with Endo Priya. The gallbladder was then taken in its entirety from the hepatic bed. There was an entry into the gallbladder wall, spillage of bile, which was then suctioned and held to limit contamination. The gallbladder itself was taken from the liver's bed with Bovie cautery under direct visualization. Once completely removed from the liver's edge, it was retrieved from the umbilical port after re-siting the gas with a 10-mm EndoCatch bag. It was removed without incident in its entirety. The liver bed was then reinspected for hemostasis and any contamination was irrigated and suctioned from the abdomen with approximately 0.5 L of sterile irrigation fluid. The pneumoperitoneum was then relieved and the umbilical port was ablated with the 0 Vicryl in [id number]. The remaining 5-mm operative ports were then closed at the skin after obtaining hemostasis throughout the port site using 4-0 Vicryl. The skin was cleaned and Dermabond was placed as a dressing and skin closure. The patient was awoken from anesthesia, having tolerated the procedure well. She was stable throughout. MD ELIJAH Mcclelland/[id number]
--- NOTE | 2019-04-08 19:38 | PN.GI ---
GI Progress Note Subjective: S/P lap adam Pain at trochar sites MRCP revealed low insertion of the cystic duct, otherwise no ductal dilatation - Objective Vital Signs: Vital Signs Temperature 98 F 04/08/19 15:15 Pulse Rate 54 L 04/08/19 15:15 Respiratory Rate 18 04/08/19 15:15 Blood Pressure 130/60 04/08/19 15:15 O2 Sat by Pulse Oximetry (%) 100 04/08/19 15:15 Constitutional: Calm Eyes: No: Sclera Icterus Cardiovascular: Yes: Regular Rate and Rhythm. No: Murmur Respiratory: Yes: CTA Bilaterally Gastrointestinal Inspection: Yes: Scars (glued trochar sites). No: Distention ...Auscultate: Yes: Normoactive Bowel Sounds ...Palpate: Yes: Soft, Tenderness (at trochar sites) ...Percussion: No: Tympanitic Edema: No (No LE edema) Neurological: Yes: Alert Labs: CBC, BMP 04/08/19 07:49 04/08/19 07:49 INR, PTT INR 1.13 (0.83-1.09) H 04/08/19 07:49 Hepatic Panel Total Bilirubin 0.3 mg/dL (0.2-1) 04/08/19 07:49 AST 17 U/L (15-37) 04/08/19 07:49 ALT 21 U/L (13-61) 04/08/19 07:49 Alkaline Phosphatase 67 U/L (45-117) 04/08/19 07:49 Albumin 3.4 g/dl (3.4-5.0) 04/08/19 07:49 Problem List - Problems (1) Biliary colic symptom Assessment/Plan: Biliary colic S/P Lap adam. No radiographic evidence of pancreatitis and lipase was minimally elevated. Post op care per surgery Advised smoking cessation Advised That she call office to arrange screening colonoscopy when acute issues are resolved. She stated that she would do so. Problems reviewed: No Code(s): K80.50 - CALCULUS OF BILE DUCT W/O CHOLANGITIS OR CHOLECYST W/O OBST
[2019-04-08] MEDS ORDERED: SERTRALINE HCL 50 MG TABLET (FP) PO SCH (22:00)
[2019-04-08] MEDS ORDERED: MAG HYDROX/AL HYDROX/SIMETH 30 ML UNIT-DOSE CUP PO ONE (22:30)
--- NOTE | 2019-04-09 05:45 | PN ---
Progress Note, Physician Chief Complaint: abdominal pain RUQ History of Present Illness: 53yo female PMH Depression, Anxiety, Irritable bowel syndrome presented to ED with persistent epigastric abdominal pain. Patient has a history of gallstones diagnosed [address] Lazo. she has been stable postoperativley. - Current Medication List Current Medications: Active Medications Acetaminophen (Ofirmev Injection -) 1,000 mg IVPB Q6H PRN PRN Reason: PAIN LEVEL 1-5 Last Admin: 04/08/19 21:32 Dose: 1,000 mg Lorazepam (Ativan Injection -) 0.5 mg IVPB Q8H PRN PRN Reason: ANXIETY Last Admin: 04/08/19 20:37 Dose: 0.5 mg Sertraline HCl (Zoloft -) 50 mg PO BID JO-ANN Last Admin: 04/08/19 21:32 Dose: 50 mg - Objective Vital Signs: Vital Signs Temperature 97.8 F 04/09/19 01:00 Pulse Rate 47 L 04/09/19 01:00 Respiratory Rate 20 04/08/19 20:00 Blood Pressure 121/64 04/09/19 01:00 O2 Sat by Pulse Oximetry (%) 100 04/08/19 15:15 Vital Signs Period Temp Pulse Resp BP Sys/Adhikari Pulse Ox Last 24 Hr 97.7 F-98.2 F 47-83 16-20 120-171/60-96 98-100 Constitutional: Yes: Well Nourished, No Distress, Calm Eyes: Yes: Conjunctiva Clear, EOM Intact HENT: Yes: Atraumatic, Normocephalic Neck: Yes: Supple, Trachea Midline Cardiovascular: Yes: Regular Rate and Rhythm, S1, S2 Respiratory: Yes: Regular, CTA Bilaterally Gastrointestinal: Yes: Normal Bowel Sounds, Soft. No: Tenderness ...Rectal Exam: Yes: Deferred Genitourinary: No: CVA Tenderness - Left, CVA Tenderness - Right Extremities: No: Cool, Cyanosis Edema: No Peripheral Pulses WNL: Yes Peripheral Pulses: Left Radial: 2+, Right Radial: 2+, Left Doralis Pedis: 2+, Right Dorsalis Pedis: 2+, Left Femoral: 2+, Right Femoral: 2+ Wound/Incision: Yes: Clean/Dry, Well Approximated, Dressing Dry and Intact Neurological: Yes: Alert, Oriented Psychiatric: Yes: Alert, Oriented Labs: CBC, BMP 04/08/19 07:49 04/08/19 07:49 INR, PTT INR 1.13 (0.83-1.09) H 04/08/19 07:49 Problem List - Problems (1) Gall stone pancreatitis Assessment/Plan: 53yo female chronic cholecystitis and gall stone pancreatitis POD#1 s/p laparoscopic cholecystetcomy Regular diet OOB encourage IS discharge at the discretion of primary team Problems reviewed: Yes Code(s): K85.10 - BILIARY ACUTE PANCREATITIS WITHOUT NECROSIS OR INFECTION (2) Biliary colic Problems reviewed: Yes Code(s): K80.50 - CALCULUS OF BILE DUCT W/O CHOLANGITIS OR CHOLECYST W/O OBST (3) Choledocholithiasis with acute cholecystitis Problems reviewed: Yes Code(s): K80.42 - CALCULUS OF BILE DUCT W ACUTE CHOLECYSTITIS W/O OBSTRUCTION (4) Abdominal pain in female Problems reviewed: Yes Code(s): R10.9 - UNSPECIFIED ABDOMINAL PAIN (5) Acute cholecystitis Code(s): K81.0 - ACUTE CHOLECYSTITIS (6) Anxiety and depression Problems reviewed: Yes Code(s): F41.9 - ANXIETY DISORDER, UNSPECIFIED; F32.9 - MAJOR DEPRESSIVE DISORDER, SINGLE EPISODE, UNSPECIFIED (7) Irritable bowel syndrome (IBS) Problems reviewed: Yes Code(s): K58.9 - IRRITABLE BOWEL SYNDROME WITHOUT DIARRHEA
[2019-04-09 07:54] LABS: BASO % 0.7 % (0-2.0); EOS % 0.4 % (0-4.5); HEMATOCRIT 39.3 % (32.4-45.2); HEMOGLOBIN 13.4 GM/dL (10.7-15.3); LYMPH % 18.9 % (8-40); MCH 31.6 pg (25.7-33.7); MEAN CELL VOLUME 92.9 fl (80-96); MEAN PLT VOLUME 9.2 fl (7.5-11.1); MONO % 7.3 % (3.8-10.2); NEUT % 72.7 % (42.8-82.8); PLATELET COUNT 208 K/MM3 (134-434); RBC 4.23 M/mm3 (3.60-5.2); RDW 13.4 % (11.6-15.6); WHITE BLOOD COUNT 9.5 K/mm3 (4.0-10.0)
[2019-04-09 08:18] LABS: ALBUMIN 3.8 g/dl (3.4-5.0); BILIRUBIN,TOTAL 0.4 mg/dL (0.2-1); BLOOD UREA NITROGEN 10.5 mg/dL (7-18); CALCIUM 9.2 mg/dL (8.5-10.1); CREATININE 0.7 mg/dL (0.55-1.3); MAGNESIUM 1.9 mg/dL (1.8-2.4); POTASSIUM 3.8 mmol/L (3.5-5.1); TOT PROT 6.8 g/dl (6.4-8.2)
--- NOTE | 2019-04-09 08:35 | DS ---
Physical Exam: SUBJECTIVE: Patient seen and examined OBJECTIVE: Vital Signs Period Temp Pulse Resp BP Sys/Adhikari Pulse Ox Last 24 Hr 97.7 F-98.2 F 47-83 16-20 120-171/60-96 98-100 PHYSICAL EXAM GENERAL: The patient is awake, alert, and fully oriented, in no acute distress. HEAD: Normal with no signs of trauma. EYES: PERRL, extraocular movements intact, sclera anicteric, conjunctiva clear. ENT: Ears normal, nares patent, oropharynx clear without exudates, moist mucous membranes. NECK: Trachea midline, full range of motion, supple. LUNGS: Breath sounds equal, clear to auscultation bilaterally, no wheezes, no crackles, no accessory muscle use. HEART: Regular rate and rhythm, S1, S2 without murmur, rub or gallop. ABDOMEN: Soft, nontender, nondistended, normoactive bowel sounds, no guarding, no rebound, no hepatosplenomegaly, no masses. EXTREMITIES: 2+ pulses, warm, well-perfused, no edema. NEUROLOGICAL: Cranial nerves II through XII grossly intact. Normal speech, gait not observed. PSYCH: Normal mood, normal affect. SKIN: Warm, dry, normal turgor, no rashes or lesions noted. LABS Laboratory Results - last 24 hr 04/08/19 04/08/19 04/08/19 07:49 07:49 07:49 WBC 4.9 RBC 4.19 Hgb 12.9 Hct 39.3 MCV 93.7 MCH 30.7 MCHC 32.8 RDW 13.6 Plt Count 184 MPV 9.1 Absolute Neuts (auto) 3.5 Neutrophils % 71.2 D Lymphocytes % 20.5 D Monocytes % 5.6 Eosinophils % 1.5 Basophils % 1.2 Nucleated RBC % 0 PT with INR INR Sodium 143 Potassium 4.4 Chloride 113 H Carbon Dioxide 23 Anion Gap 7 L BUN 10.9 Creatinine 0.6 Est GFR (CKD-EPI)AfAm 122.32 Est GFR (CKD-EPI)NonAf 105.54 Random Glucose 84 Calcium 8.8 Magnesium Total Bilirubin 0.3 AST 17 ALT 21 Alkaline Phosphatase 67 Total Protein 6.1 L Albumin 3.4 Lipase 133 04/08/19 04/09/19 07:49 07:10 WBC RBC Hgb Hct MCV MCH MCHC RDW Plt Count MPV Absolute Neuts (auto) Neutrophils % Lymphocytes % Monocytes % Eosinophils % Basophils % Nucleated RBC % PT with INR 13.30 H INR 1.13 H Sodium 140 Potassium 3.8 Chloride 107 Carbon Dioxide 24 Anion Gap 9 BUN 10.5 Creatinine 0.7 Est GFR (CKD-EPI)AfAm 116.27 Est GFR (CKD-EPI)NonAf 100.32 Random Glucose 95 Calcium 9.2 Magnesium 1.9 Total Bilirubin 0.4 AST 30 ALT 34 Alkaline Phosphatase 70 Total Protein 6.8 Albumin 3.8 Lipase 123 HOSPITAL COURSE: Date of Admission:04/07/19 Date of Discharge: 04/09/19 Minutes to complete discharge: 35 Discharge Summary Problems reviewed: Yes Reason For Visit: ACUTE CHOLECYSTATIS Current Active Problems Abdominal pain in female (Acute) Acute cholecystitis (Acute) Anxiety and depression (Acute) Biliary colic (Acute) Biliary colic symptom (Acute) Choledocholithiasis with acute cholecystitis (Acute) Gall stone pancreatitis (Acute) Heroin abuse (Acute) Irritable bowel syndrome (IBS) (Acute) Pancreatitis (Acute) Polysubstance abuse (Acute) Preventive measure (Acute) Condition: Stable - Instructions Diet, Activity, Other Instructions: Postoperative instructions: You had a laparoscopic cholecystectomy on [address] Dustin Doty of [facility]. Activity: Resume your usual activities gradually, but no heavy exertion or lifting more than 10-15 pounds for 1 month. You may shower daily starting then, just pat the incision areas dry. No bath or swimming until skin incisions have healed. Eat lightly at first, but advance to your usual diet as tolerated. Pain: For pain, you may use and alternate Tylenol (acetaminophen) 1-2 pills and/ or ibuprofen 200 mg (1-3 pills) every 6 hours each as needed; this means that you can take one OR the other at 3-hour intervals. If you are prescribed a Tylenol/narcotic combination for severe pain, use it instead of plain Tylenol as needed and switch back when your pain starts decreasing. Do not take more than 4000mg of acetaminophen in a day. Take medications as prescribed or indicated on the labeling. Follow-up: Call Dr. Doty' office at [phone] to make your postop appointment (Sunday in approximately 2 weeks after surgery). Clinic is held in the Diagnostic [facility] on the first floor of [facility]. Call the office if you have: * increasing pain not responsive to pain medication * fever of 101F or higher * vomiting * unusual or increasing bleeding or drainage from wounds * increasing redness or swelling at wound sites * inability to urinate Also, see your primary medical doctor within 1-2 weeks. Disposition: HOME - Home Medications Comprehensive Discharge Medication List: Ambulatory Orders Sertraline HCl 50 mg PO BID 04/08/18 Problem List - Problems (1) Pancreatitis Code(s): K85.90 - ACUTE PANCREATITIS WITHOUT NECROSIS OR INFECTION, UNSP (2) Polysubstance abuse Code(s): F19.10 - OTHER PSYCHOACTIVE SUBSTANCE ABUSE, UNCOMPLICATED (3) Preventive measure Code(s): Z29.9 - ENCOUNTER FOR PROPHYLACTIC MEASURES, UNSPECIFIED (4) Anxiety and depression Code(s): F41.9 - ANXIETY DISORDER, UNSPECIFIED; F32.9 - MAJOR DEPRESSIVE DISORDER, SINGLE EPISODE, UNSPECIFIED (5) Irritable bowel syndrome (IBS) Code(s): K58.9 - IRRITABLE BOWEL SYNDROME WITHOUT DIARRHEA (6) Choledocholithiasis with acute cholecystitis Code(s): K80.42 - CALCULUS OF BILE DUCT W ACUTE CHOLECYSTITIS W/O OBSTRUCTION - Discharge Referral Referred to [facility] Med P.C.: No
[2019-04-09 08:48] VITALS: BP 122/70; PULSE 56; TEMP 97.7
--- NOTE | 2019-04-10 17:59 | PATH ---
Surgical Pathology Report Patient Name: JANETH PLASENCIA [facility]. Rec. #: [id number] /Age/Gender: 1965 (Age: 53) / F Account: [id number] Location: [address] [place] [address]/[facility] Taken: 04/08/2019 Received: 04/08/2019 Reported: 04/10/2019 Physicians: Dustin Doty M.D. Specimen(s) Received GALLBLADDER Clinical History Biliary pancreatitis Final Diagnosis GALLBLADDER, LAPAROSCOPIC CHOLECYSTECTOMY: GALLBLADDER WITH ACUTE AND CHRONIC CHOLECYSTITIS, CHOLELITHIASIS, AND ADENOMYOMATOUS HYPERPLASIA. ONE BENIGN PERIDUCTAL LYMPH NODE (0/1). Electronically Signed Eliza Pham M.D. Gross Description Received in formalin, labeled "gallbladder," is a 7.0 x 2.7 x 2.5 cm. gallbladder with a 0.2 cm. in length portion of cystic duct attached. There is a 1.2 cm in greatest dimension periductal lymph node present. The outer surface is marrufo-be with a focal defect and varies from smooth to shaggy. The lumen contains green, tenacious bile as well as multiple black, irregular choleliths ranging from 0.1-0.5 cm in greatest dimension. The wall of the gallbladder fundus is thickened with submucosal cystic spaces. The mucosa is green and velvety. The wall of the gallbladder averages 0.1 cm. in thickness. Metal Grader sections are submitted in 5 cassettes as follows: 1-cystic duct margin, periductal lymph node and logistics service representative gallbladder; 2-5-fundus. /04/09/2019 [facility]04/09/2019
== END 2019-04-09 08:51 | disposition home or self-care (01) | DRG 263 ==
LOC: FER 00:02 → FM/S 03:30 → UNDOADMIN 03:58 → J6S 14:23
PROVIDERS: ADMIT Internal Medicine; ATTEND Nurse Practitioner Acute Care
PROC: 0FT44ZZ Resection of Gallbladder, Percutaneous Endoscopic Approach (ICD-10-PCS; principal; 2019-04-08 13:00)
DX: K85.10 Biliary acute pancreatitis without necrosis or infection (principal); K80.42 Calculus of bile duct with acute cholecystitis without obstruction; F41.9 Anxiety disorder, unspecified; F41.0 Panic disorder [episodic paroxysmal anxiety]; K58.9 Irritable bowel syndrome, unspecified; F41.8 Other specified anxiety disorders; Z88.0 Allergy status to penicillin; F19.10 Other psychoactive substance abuse, uncomplicated; F17.210 Nicotine dependence, cigarettes, uncomplicated
CPT/HCPCS: 36415; 70450-TC; 71045-TC-FY; 74176-TC; 74181-TC; 76705-TC; 80048; 80053; 81003; 82550; 83690; 83735; 84484; 85025; 85027; 85610; 87086; 93005; 94010; 94760; 99282-25; J0131; J1644; J7030